=== PATIENT | female | born 1955 | race Caucasian/White ===

== ENCOUNTER 2020-06-12 09:26 | Day surgery (SDC) | payer OTHER ==
[2020-06-12] MEDS ORDERED: FENTANYL CITR 100 MCG/2 ML ONE (09:56)
[2020-06-12] MEDS ORDERED: LIDOCAINE 1% MPF 5 ML VIAL ONE (09:56)
[2020-06-12] MEDS ORDERED: propofoL 200 MG/20 ML VIAL IV ONE (09:56)
[2020-06-12] MEDS ORDERED: NA CHLORIDE 0.9% 1,000 ML ONE ×2 (10:04→10:29)
[2020-06-12] MEDS ORDERED: LIDOCAINE 1% W/EPI 1:100,000 MDV 50 ML VIAL ONE (10:29)
[2020-06-12] MEDS ORDERED: SCOPOLAMINE HYDROBROMIDE PATCH TD ONE (10:31)
[2020-06-12] MEDS ORDERED: ONDANSETRON 4 MG/2 ML VIAL ONE (10:41)
[2020-06-12] MEDS ORDERED: KETOROLAC 30 MG/ML INJ ONE (10:46)
[2020-06-12] MEDS ORDERED: dexAMETHasone 10 MG/ML VIAL ONE (10:46)
[2020-06-12] MEDS ORDERED: NS 0.9% VIAL 10 ML ONE (10:55)
[2020-06-12] MEDS ORDERED: EPHEDRINE SULF 50 MG/ML VIAL ONE (10:55)
[2020-06-12 11:37] VITALS: O2SAT 96
--- NOTE | 2020-06-12 12:12 | OP ---
Date of Procedure: 06/12/2020 Surgeon: Nila Tomas MD Preoperative Diagnoses: Postmenopausal bleeding, endometrial thickening. Postoperative Diagnoses: Postmenopausal bleeding, endometrial thickening, and endometrial polyps. Procedure Performed: Hysteroscopy, polypectomy, and D and C with MyoSure Lite. Anesthesia: General with LMA. Specimens: Polyps and endometrial curettings. Complications: No complications. Drains: No drains. Condition: Stable. Findings: Uterus with thickened posterior wall endometrium with irregularities and polypoid structur es in the left cornual end. All these were sampled adequately. Cervix had stenosis and the uterine cavity slightly deviated to the left and anteflexed. Indications: The patient is a 65-year-old female presented with postmenopausal bleeding, 1 episode, small amount. Transvaginal ultrasound showed thickened, heterogeneous endometrium. She was counsele d on the need for endometrial sampling to rule out atypia or malignancy. Description Of Procedure: She was consented and brought to the hospital today. At preop, her daught er was present and she asked appropriate questions regarding understanding of her procedure, the christi cation and management of her condition including postop instructions. All these were discussed and a fter questions were answered to patient and her daughter's satisfaction, she was taken back to the OR . So after taking the patient back, she was placed in a supine fashion on the operating table. Gene ral anesthesia was given, placed in a dorsal lithotomy position. Vulva, vagina, perineum prepped and draped in a sterile fashion. Speculum placed to expose the cervix. Anterior lip grasped with a sin gle-tooth tenaculum. The cervical canal was visualized and slimline diagnostic hysteroscope was used after another scope with a blunt tip was unable to pass through the cervical canal. The scope helpe d me get into the cervical canal through the internal os into the uterine cavity under direct visuali zation. Both tubal ostia were well visualized. The fundus was well visualized. The findings were a s dictated above, thickened polypoid structures at the left cornual end and posterior thickened irreg ular endometrium. The scope was removed and the MyoSure scope was taken. The cervical canal was dil ated to 16-Lao. Then, using the MyoSure Lite after priming the entire circuit, the scope with the device was introduced into the uterine cavity. Then, polypectomy was performed with the MyoSure dev ice as well as the entire endometrial curettings were performed. On the anterior wall of the uterus, there appeared to be irregular thickened tissue. This was also sampled adequately. The scope was p ulled out carefully, not a very high pressure was maintained during the hysteroscopy. The patient to lerated the procedure well. EBL was minimal. The single-tooth tenaculum was removed. All instrumen ts were removed. Instrument, needle, and sponge counts were correct. The patient tolerated the proc edure well. She was recovered from anesthesia in the OR and taken to PACU in stable condition. She has a 1-week followup appointment with me. We will discuss the pathology and then make management pl ans. SARATH/URSULA Voice ID: [id number] Report ID: [id number]
[2020-06-12 12:40] VITALS: BP 128/68; TEMP 98
== END 2020-06-12 12:40 | disposition home or self-care (01) ==
LOC: OR 09:26
PROVIDERS: ATTEND Obstetrics & Gynecology
PROC: 0UDB8ZX Extraction of Endometrium, Via Natural or Artificial Opening Endoscopic, Diagnostic (ICD-10-PCS; 2020-06-12)
PROC: 0UB98ZX Excision of Uterus, Via Natural or Artificial Opening Endoscopic, Diagnostic (ICD-10-PCS; principal; 2020-06-12 10:30)
DX: N85.00 Endometrial hyperplasia, unspecified (principal); N84.0 Polyp of corpus uteri; N95.0 Postmenopausal bleeding; Z79.890 Hormone replacement therapy; E11.40 Type 2 diabetes mellitus with diabetic neuropathy, unspecified; I10 Essential (primary) hypertension; R39.15 Urgency of urination; Z79.84 Long term (current) use of oral hypoglycemic drugs; E05.90 Thyrotoxicosis, unspecified without thyrotoxic crisis or storm; Z20.828 Contact with and (suspected) exposure to other viral communicable diseases; K21.9 Gastro-esophageal reflux disease without esophagitis
CPT/HCPCS: 82947 ×2; 88305; 58558; U0002; J2704; J3010; J1100; J7030 ×2; J2405

== ENCOUNTER 2020-07-17 11:05 | Day surgery (SDC) | payer OTHER ==
[2020-07-11 10:27] LABS: Urine Appearance CLEAR; Urine Bilirubin NEGATIVE (NEG); Urine Blood NEGATIVE (NEG); Urine Color YELLOW; Urine Glucose NEGATIVE (NEG); Urine Protein NEGATIVE (NEG); Urine Urobilinogen 0.2 mg/dL (0.2-1.0); Urine pH 5.5 (5.0-7.0)
[2020-07-11 10:29] LABS: Absolute Lymphocytes (CBC) 1.5 K/uL (0.7-4.9); Hematocrit 39.6 % (36.0-45.0); MPV 8.7 fL (7.6-11.3); RBC Red Blood Cell Count 4.28 M/uL (3.86-4.86)
[2020-07-11 10:41] LABS: Urine Microscopic Reflex NO UMIC
[~2020-07-17 11:05] MED LIST: FENTANYL CITR 250 MCG/5 ML ONE; KETAMINE HCL 500 MG/5 ML VIAL ONE; LIDOCAINE 1% MPF 5 ML VIAL ONE; MIDAZOLAM HCL 2 MG/2 ML INJ ONE; ONDANSETRON 4 MG/2 ML VIAL ONE; ROCURONIUM 50 MG/5 ML VIAL IV ONE; dexAMETHasone 10 MG/ML VIAL ONE; propofoL 200 MG/20 ML VIAL IV ONE
[2020-07-17] MEDS ORDERED: CEFAZOLIN/SWI 2gm 2 GM/20 ML SYR ONE (11:30)
[2020-07-17] MEDS ORDERED: SCOPOLAMINE HYDROBROMIDE PATCH TD ONE (11:30)
[2020-07-17] MEDS ORDERED: NA CHLORIDE 0.9% 1,000 ML ONE (11:30)
--- OUTSIDE RECORDS SUMMARY | 2020-07-17 11:30 | XMS REPORT | Clinical Summary ---
:1955 Author Organization [facility] Address [address] [place] [address] Care Team Providers Name Role Phone Janny Crespo DO Primary Care Provider Allergies No Known Active Allergies Medications Medication Sig Dispensed Refills Start End Status Date Date hydroCHLOROthiazide 1 capsule in 0 Active (MICROZIDE) 12.5 mg the morning capsule metoprolol tartrate Take 1 tablet 90 tablet 3 01/10/20 Active (LOPRESSOR) 50 mg (50 mg total) 021 tablet by mouth 2 (two) times a day. omeprazole (PriLOSEC) Take 40 mg by 0 Active 40 MG capsule mouth daily. levothyroxine Take 50 mcg 0 Acti ve (SYNTHROID) 50 mcg by mouth tablet daily. oxybutynin (DITROPAN) 5 Take 5 mg by 0 Active MG tablet mouth 3 (three) times a day. metFORMIN (GLUCOPHAGE) Take 1,000 mg 0 Active 1,000 mg tablet by mouth 2 (two) times a day with meals. levothyroxine Take 1 tablet 0 09/02/19 Di scontinued (SYNTHROID, LEVOXYL) 25 by mouth 020 (Formulary mcg tablet daily. change) keTOROlac (ACULAR LS) Administer 1 5 mL 0 12/13/01/09 Discontinued 0.4 % ophthalmic drop into the (Formulary solution left eye 2 change) (two) times a day. prednisoLONE acetate Administer 1 5 mL 0 12/13/ Discontinued (PRED FORTE) 1 % drop to the ( Formulary ophthalmic suspension right eye 2 change) (two) times a day. metoprolol tartrate 1 tablet with 0 Discontinued (LOPRESSOR) 25 mg food 020 (F ormulary tablet change) ezetimibe (ZETIA) 10 mg 1 tablet 0 Discontinued tablet 020 (Therapy completed) losartan (COZAAR) 50 MG Take 50 mg by 0 Discontinued tablet mouth daily. 020 (Formul josee change) metoprolol succinate XL Take 25 mg by 0 Discontinued (TOPROL-XL) 25 mg 24 hr mouth. 020 (Duplicate tablet order) pantoprazole (Protonix) Take 1 tablet 30 tablet 2 03/19/20 40 MG EC tablet (40 mg total) 20 020 by mouth daily for 30 days. benzonatate (TESSALON) Take 1 90 capsule 0 03/19/20 200 MG capsule capsule (200 20 020 mg total) by mouth 3 (three) times a day as needed for cough for up to 30 days. sucralfate (Carafate) Take 10 mL (1 1200 mL 0 03/19/2003/23 100 mg/mL suspension g total) by 20 020 mouth 4 (four) times a day for 30 days. Active Problems Problem Noted Date Chronic cough 03/19/2020 Gastroesophageal reflux disease without esophagitis Pure hypercholesterolemia 01/10/2020 SOB (shortness of breath) 01/10/2020 Essential hypertension 01/10/2020 Pseudophakia 10/12/2018 Overview: OS 10/12/18 PCB00 20.5 OD 11/30/18 PCB00 21.0 Last Assessment & Plan: OS 10/12/18 PCB00 20.5 OD 11/30/18 PCB00 21.0 Post-op. Doing well.. Take drops as per handout/instruction sh eet. Defers 1 week appt, will call if any pro blems. Return for followup in 1 month, sooner i f any problems, including vision loss, pain, redness, light sensitivity. S/Sx of infection/inflammation d/w pt. Start ATs OS -- c/o FBS. Info given. Optic cupping of both eyes 10/04/2018 Last Assessment & Plan: OCT Normal, no glaucoma. Encounters Date Type Specialty Care Team Description 03/19/2020 Hospital Encounter Radiology Preston Alfaro, Chr onic cough 03/19/2020 Clinical Support Pulmonology Preston Alfaro, Chron ic cough Manolo Lewis 03/19/2020 Office Visit Pulmonology Preston Alfaro, Chronic c ough (Primary Dx); MD Hansa esquivel reflux disease without esophagitis 03/19/2020 Travel 03/16/2020 Travel 02/29/2020 Travel 02/21/2020 Travel 01/10/2020 Office Visit Cardiology Andrew Alfaro, SOB (shortn ess of breath) (Primary Dx); Pure hyperchole sterolemia; Essential hyper tension 01/10/2020 Travel 01/04/2020 Travel after 07/17/2019 Surgical History Surgery Date Site/Laterality Comments CHOLECYSTECTOMY 06/22/1991 - 06/21/1992 SECTION x2 CATARACT EXTRACTION W/ 10/12/2018 Left INTRAOCULAR LENS IMPLANT PHACOEMULSIFICATION, 10/12/2018 Eye/Left Procedure: CATARACT, WITH IOL PHACOEMULSIFI CATION WITH IMPLANTATION INTRAOCULAR LENS IMPLANT, LEFT EYE; Surge on: Yunier Jenkins MD; L ocation: [facility] OR; Serv ice: Ophthalmology; Laterality: Left; Medical devices from this surgery are in t he Implants section. PHACOEMULSIFICATION, 11/30/2018 Eye/Right Procedure: CATARACT REMOVAL CATARACT, WITH IOL BY PHACOEMULS IFICATION WITH IMPLANTATION INTRAOCULAR LENS IMPLANT RIGHT EYE; Surg car: Yunier Jenkins MD; L ocation: [facility] OR; Serv ice: Ophthalmology; Laterality: Right; Medical devices from this surgery are in t he Implants section. Medical History Medical History Date Comments Disease of thyroid gland 2017 controlled with medication Social History Tobacco Use Types Packs/Day Years Used Date Never Smoker Smokeless Tobacco: Never Used Alcohol Use Drinks/Week oz/Week Comments Yes social only Sex Assigned at Date Recorded Not on file Last Filed Vital Signs Vital Sign Reading Time Taken Comments Blood Pressure 140/60 03/19/2020 1:51 PM CDT Pulse 62 03/19/2020 1:51 PM CDT Temperature 37 C (98.6 F) 03/19/2020 1:51 PM CDT Respiratory Rate 14 03/19/2020 1:51 PM CDT Oxygen Saturation 98% 03/19/2020 1:51 PM CDT Inhaled Oxygen Concentration - - Weight 66.1 kg (145 lb 12.8 oz) 03/19/2020 1:51 PM CDT Height 151.1 cm (4' 11.5") 03/19/2020 1:51 PM CDT Body Mass Index 28.96 03/19/2020 1:51 PM CDT Plan of Treatment Health Maintenance Due Date Last Done Comments DIABETIC FOOT EXAM 1963 URINE MICROALBUMIN 1963 COVID-19 VACCINE (1 of 2) 1969 BREAST CANCER SCREENING 2003 COLONOSCOPY SCREENING 2003 SHINGLES VACCINES (#1) 2003 65+ PNEUMOCOCCAL VACCINE (1 of 1 - 2018 PPSV23) INFLUENZA VACCINE 01/21/2020 DIABETES: RETINAL EYE EXAM 10/04/2020 10/04/2018, 9, 09/09/2018, Additional history exists Implants Implanted Type Area Computer Hardware Engineer Device Shelf Model / Identifier Expiration Serial / Lot Date Lens Iol Tecnis Monofocal Preloaded 1 Pi loree Pcb 20.5d - [id number] - [id number] Intraocular Left: [employer] 04/08/2021 [id number] / Implanted: Qty: 1 on 10/12/2018 by Yunier Jenkins MD at [facility] Lens Implant [employer] [id number] / [id number] Lens Iol Tecnis Monofocal Preloaded 1 Pi loree Pcb 21.0d - [id number] - [id number] Intraocular Right: [employer] 09/23/2021 [id number] / Implanted: Qty: 1 on 11/30/2018 by Yunier Jenkins MD at [facility] Lens Implant [employer] [id number] / [id number] Procedures Procedure Name Priority Date/Time Associated Diagnosis Comme nts XR CHEST 2 VW Routine 03/19/2020 4:04 Chronic cough Results f or this PM CDT procedure are i n the results section. CV STRESS TEST Routine 02/21/2020 12:08 Pure hyperchole sterolemia Results for this PM CDT SOB (shortness o f breath) procedure are in Essential hypertension the r esults section. NM MYOCARDIAL Routine 02/21/2020 10:37 Pure hyperchole sterolemia Results for this PERFUSION AM CDT SOB (shortness o f breath) procedure are in Essential hypertension the r esults section. ECG 12-LEAD Routine 01/10/2020 12:03 Pure hypercholesterolemi a Results for this PM CDT procedure are i n the results section. after 07/17/2019 Results XR Chest 2 Vw (03/19/2020 4:04 PM CDT) Specimen Narrative Performed At EXAMINATION: XR CHEST 2 VW [facility] CLINICAL HISTORY: R05 Cough, Chronic c ough COMPARISON: None IMPRESSION: 1. The heart and pulmonary vasculature a re within normal limits. 2. No infiltrate or effusion is demonstr ated. 3. There is no acute osseous pathology. CONCLUSION: NO RADIOGRAPHIC EVIDENCE OF ACUTE CARDIOPU LMONARY ABNORMALITY. [facility]-[id number] Procedure Note Hm Interface, Radiology Results Incoming - 03/19/2020 4:10 PM CDT EXAMINATION: XR CHEST 2 VW CLINICAL HISTORY: R05 Cough, Chronic co ugh COMPARISON: None IMPRESSION: 1. The heart and pulmonary vasculature a re within normal limits. 2. No infiltrate or effusion is demonstr ated. 3. There is no acute osseous pathology. CONCLUSION: NO RADIOGRAPHIC EVIDENCE OF ACUTE CARDIOPULMONARY ABNORMALITY. [facility]-[id number] Performing Organization Address City/State/ZIP Code Phon e Number [facility] [address] [place] [address] Cv stress test (02/21/2020 12:08 PM CDT) Resting HR 59 [facility] Resting BP 150&90 [facility] Peak MET Achieved 1.0 [facility] Protocol Name [facility] Time in Exercise 00:01:00 H MUSE Phase Max Systolic BP 150 [facility] Max Diastolic BP 90 [facility] Max Heart Rate 93 [facility] Max Predicted Heart 153 H [facility] Rate Target HR Formula (220 - Age)*100% H MUSE Test Indication HYPERCHOLESTEROLEMIA, [facility] HTN, SOB Arrhy During Ex [facility] ECG Interp Before EX [facility] ECG Interp During Ex H MUSE Ex Summary Comment [facility] M[facility] Chest Pain Statement none [facility] M[facility] Overall HR Response H MUSE to Exercise Overall BP Response [facility] M[facility] To Exercise Reason for As per [facility] Termination protocol Stress Test Waveform interpreted in [facility] Impression report associated with image study. No interpretation is provided as part of this Stress ECG report.--Electronically Signed By Gavino FERGUSONTruong ([id number]), legal editor Lauren Ratliff ([id number]) on 02/29/2020 2:28:16 PM Specimen Narrative Performed At This result has an attachment that is no t available. Performing Organization Address City/State/ZIP Code Phon e Number [facility] MUSE [address] [place] [address] Nm myocardial perfusion (02/21/2020 10:37 AM CDT) Specimen Narrative Performed At [facility] Card[facility] [address] [place] [address] Myocardial Pe rfusion Imaging Report Stress ECG tracings are availab le in MUSE, [employer] and [employer] Web All ECG interpretations a re included in this report Pat.Name: HANNA PEREZ Pat.ID: [id number] .Date: 02/21/2020 Refer.MD: ANDREW ALFARO MD Exam Time: 10:37:00 AM Study Type:Myocardial Perfusion Imaging Height: 59in Weight: 148lb BSA: 1.62 m2 Ag e: 1955,65Y Sex: FEMALE Nuclear Tech:CONNER Delgadillo Nuclear Event ID:[id number] Order ID: [id number] Reason for Study:Shortness of breath, Hy pertension, Hypercholesterolemia Procedures: Single Day Rest / Stress Race: Clinical Symptoms:Regadenoson SUMMARY: BASELINE ECG Sinus bradycardia STRESS TEST RESULTS Maximal Predicted HR 153 beats/minute 85% Maximal Predicted HR 130 beats/minute Stress Test Duration 1 minutes 00 seco nds Resting Heart Rate 57 beats/minute Max imal Heart Rate 93 beats/minute Resting Blood Pressure 150/90 mmHg Max imal Blood Pressure 150/90 mmHg % Maximal Heart Rate Achieved 61% Symptoms During Test None Reason for Stopping Test As per regade noson protocol Maximal ST-segment shift None Stress-Induced Arrhythmias None Ischemic electrocardiographic changes (S T-segment depression) did not occur at peak regadenoson stress. STRESS TEST INTERPRETATION Normal tanya l regadenoson stress test. SCINTIGRAPHIC RESULTS Perfusion Defect Size (% LV) 0 % Total 0 % Ischemia 0 % Scar Left Ventricular Perfusion Results There is normal tracer distribution duri ng stress and rest. Gated SPECT Results The post-stress left ventricular ejectio n fraction is 63 % with normal regional wall motion and left ventricula r thickening. Left ventricular end-diastolic volume is 54 m l; end-systolic volume is 20 ml. The left ventricle is of normal size at stress and at rest. The right ventricle is of normal size with n ormal wall motion. Conclusion Normal regadenoson Tc-99m sestamibi myoc ardial perfusion study. The left ventricular ejection fraction is no rmal. Comments Patients with a normal stress myocardial perfusion study have a low (< 1%) annual risk of cardiac or nonf atal myocardial infarction. Study Quality/Artifacts The study quality is good. Comparison to Previous Study None available. FINDINGS: Signed 02/23/2020 04:05 PM Truong Mancia MD Procedure Note Interface, Radiology Results In - 2019 4:06 PM [facility]T Nuclear Cardiology and Cardiac CT [address] [place] [address] Myocardial Perfusion I maging Report Stress ECG tracings are available in [employer], [employer] and [employer] All ECG interpretations are in cluded in this report Pat.Name: HANNA PEREZ Pat.I D: [id number] St.Date: 02/21/2020 Refer .MD: ANDREW ALFARO MD Exam Time: 10:37:00 AM Study Type:Myocardial Perfusion Imaging Height: 59in Weigh t: 148lb BSA: 1.62 m2 Age: 8 1955,65Y Sex: FEMALE Nucle ar Tech:CONNER Delgadillo Nuclear Event ID:[id number] Order ID: [id number] Reason for Study:Shortness of breath, Hy pertension, Hypercholesterolemia Procedures: Single Day Rest / Stress Race: Clinical Symptoms:Regadenoson SUMMARY: BASELINE ECG Sinus bradycardia STRESS TEST RESULTS Maximal Predicted HR 153 beats/minute 8 5% Maximal Predicted HR 130 beats/minute Stress Test Duration 1 minutes 00 secon ds Resting Heart Rate 57 beats/minute Maxi mal Heart Rate 93 beats/minute Resting Blood Pressure 150/90 mmHg Maxi mal Blood Pressure 150/90 mmHg % Maximal Heart Rate Achieved 61% Symptoms During Test None Reason for Stopping Test As per regaden oson protocol Maximal ST-segment shift None Stress-Induced Arrhythmias None Ischemic electrocardiographic changes (S T-segment depression) did not occur at peak regadenoson stress. STRESS TEST INTERPRETATION Normal tanya l regadenoson stress test. SCINTIGRAPHIC RESULTS Perfusion Defect Size (% LV) 0 % Total 0 % Ischemia 0 % Scar Left Ventricular Perfusion Results There is normal tracer distribution duri ng stress and rest. Gated SPECT Results The post-stress left ventricular ejectio n fraction is 63 % with normal regional wall motion and left ventricula r thickening. Left ventricular end-diastolic volume is 54 m l; end-systolic volume is 20 ml. The left ventricle is of normal size at stress and at rest. The right ventricle is of normal size with n ormal wall motion. Conclusion Normal regadenoson Tc-99m sestamibi myoc ardial perfusion study. The left ventricular ejection fraction is no rmal. Comments Patients with a normal stress myocardial perfusion study have a low (< 1%) annual risk of cardiac or nonf atal myocardial infarction. Study Quality/Artifacts The study quality is good. Comparison to Previous Study None available. FINDINGS: Signed 02/23/2020 04:05 PM Truong Mancia MD Performing Organization Address City/State/ZIP Code Phon e Number [facility] [address] [place] [address] ECG 12 lead (01/10/2020 12:03 PM CDT) Pathologist Sig nature Ventricular rate 69 [facility] Atrial rate 69 [facility] NJ interval 150 [facility] QRSD interval 84 [facility] QT interval 408 [facility] QTC interval 437 [facility] P axis 1 78 [facility] QRS axis 1 22 [facility] T wave axis -2 [facility] EKG impression Normal sinus [facility] rhythm-Normal ECG-No previous ECGs available-Electronicall y Signed By Koby FERGUSON, Mark ([id number]) on 01/10/2020 9:09:28 PM Specimen Narrative Performed At This result has an attachment that is no t available. Performing Organization Address [facility] Code Phon e Number [facility] MUSE [address] [place] [address] after 07/17/2019 Insurance Payer Benefit Plan / Subscriber ID Effective Phone Address T ype Group Dates MEDICARE MEDICARE PART A [id number] 2018-Pres [place], [place] Medicare AND B ent COMMERCIAL MISC MISC COMMERCIAL [id number] 2018-Pre Commercial sent Advance Directives For more information, please contact: [phone] Type Date Recorded Patient Button Sewer Hand Explanati on Advance Directives, Living Will 11/30/2018 6:45 AM and Medical Power of Pediatric Speech Therapist
--- OUTSIDE RECORDS SUMMARY | 2020-07-17 11:31 | XMS REPORT ---
:1955 [address] [facility] Address [address] [place], [address] [place] [address] Care Team Providers Name Role Phone Crespo Unavailable [phone] PROBLEMS Type Condition ICD9-CM [id number] Onset Condition SNOMED Code Notes Code Code Dates Status Problem Depression with F41.8 Active 916057635 anxiety Problem Urinary incontinence R32 Active 418858256 Problem Acquired E03.9 Active 923747438 hypothyroidism Problem Family history of Z83.3 Active 768252202 diabetes mellitus Problem Abnormal blood R79.9 Active 824765953 chemistry Problem Hypertriglyceridemia E78.1 Active 900125674 Problem GERD (gastroesophageal K21.9 Active 113562957 reflux disease) Problem Osteoporosis M81.0 Active 55414793 Problem Slow transit K59.01 Active 75174833 constipation Problem Seasonal allergic J30.2 Active 801570955 rhinitis, unspecified trigger Problem Essential hypertension I10 Active 40255284 Problem Mild persistent J45.30 Active 955696556 asthma, unspecified whether complicated Problem Gastroesophageal K21.9 Active 471606579 reflux disease without esophagitis Problem Elevated blood R03.0 Active 165360190 pressure reading in office without diagnosis of hypertension Problem Abdominal pain, left R10.12 Active 985207343 upper quadrant Problem Hyperlipidemia E78.5 Active 51499145 Problem Candidal intertrigo B37.2 Active 960187146 Problem Gastroesophageal K21.9 Active 181403651 reflux disease, esophagitis presence not specified Problem Controlled type 2 E11.9 Active 363498373 diabetes mellitus without complication, without long-term current use of insulin Problem Atrophic vaginitis N95.2 Active 53212619 Problem Allergic rhinitis due J30.81 Active 2081178013 64052 to animal hair and dander ALLERGIES No Known Allergies ENCOUNTERS from 1955 to 2020-07-03 Encounter Location Date Provider Diagnosis [facility] [address] Akash ROSE Jun, Janny Huitrong Acq uired hypothyroidism Family [facility] [address] [place], E03.9 ; [place] [address] 2 diabetes randa litus without complic ation, without long-te rm current use of insulin E11.9 and Hyper lipidemia E78.5 IMMUNIZATIONS No Information SOCIAL HISTORY Tobacco Use: Social History Observation Description Date Details (start date - stop date) Never Smoker Sex Assigned At : Social History Observation Description Sex Assigned At Unknown PHQ9 Question Answer Notes Little interest or pleasure in doing things Several days Feeling down, depressed, or hopeless More than half the days Trouble falling or staying asleep or sleeping too much Sever al days Feeling tired or having little energy More than half the day s Poor appetite or overeating Several days Feeling bad about yourself, or that you are a failure, Sever al days or have let yourself or your family down Trouble concentrating on things, such as reading the Not at all newspaper or watching television Moving or speaking so slowly that other people could Not at all have noticed; or the opposite, being so fidgety or restless that you have been moving around a lot more than usual Total Score 8 Interpretation Mild Depression Thoughts that you would be better off or of Not at all hurting yourself in some way Tobacco Use/Smoking Question Answer Notes Are you a never smoker REASON FOR REFERRAL No Information VITAL SIGNS Height 59.50 in Jun, Weight 150.2 lbs Jun, Temperature 96.6 degrees Fahrenheit Jun, BMI 29.83 kg/m2 Jun, Oximetry 98 % Jun, Respiratory Rate 16 /min Jun, Blood pressure systolic 121 mm Hg Jun, Blood pressure diastolic 68 mm Hg Jun, MEDICATIONS Medication SIG (Take, Route, Notes Start Date End Date Status Frequency, Duration) Triamcinolone Acetonide 0.1 % 1 application to 30 Mar, 202 0 Active affected area Externally Twice a day for 14 days Levothyroxine Sodium 25 MCG take 1 tablet in the Active am once daily orally Orally Once a day for 90 days Januvia 50 MG as directed Orally Mar, A ctive Once a day for 30 days Glimepiride 4 MG 1 tablet Orally twice Active a day with food for 90 days Hydrochlorothiazide 12.5 MG 1 capsule in the Active morning Orally Once a day for 30 day(s) Losartan Potassium 25 MG 1 tablet Orally Once Active a day for 30 day(s) Ezetimibe 10 MG 1 tablet Orally Once Active a day for 30 day(s) Metoprolol Tartrate 25 MG 1 tablet with food Active Orally Twice a day for 30 days Montelukast Sodium 10 MG 1 tablet Orally Once Active a day for 90 days ProAir RespiClick 108 (90 2 puffs Inhalation Nov, Active Base) MCG/ACT every 6 hours prn sob/ or coughing excessively for 30 days Albuterol Sulfate HFA 108 (90 2 puffs Inhalation Nov, Active Base) MCG/ACT every 6 hours prn sob for 30 days MetFORMIN HCl ER 500 MG 1 tablet with meal May, Active Orally Once a day for 90 days PROCEDURES No Information RESULTS No Results REASON FOR VISIT 1 month follow up , Medication check , hair thinning biotin use and thyroid, htn, Dm2 MEDICAL (GENERAL) HISTORY Type Description Date Medical History Depression with anxiety Medical History GERD (gastroesophageal reflux disease) Medical History Elevated blood pressure reading in offic e without diagnosis of hypertension Medical History Abnormal blood chemistry Medical History Family history of diabetes mellitus Medical History Hyperlipidemia Medical History Hypertriglyceridemia Medical History Osteoporosis Medical History Urinary incontinence Medical History Candidal intertrigo Surgical History 1988 Surgical History gallbladder 1992 Goals Section No Information Health Concerns No Information MEDICAL EQUIPMENT No Information MENTAL STATUS No Information FUNCTIONAL STATUS No Information ASSESSMENTS Encounter Date Diagnosis Assessment Treatment Notes Treatment Notes Clinical Notes Jun, Acquired -Take thyroid advised to hol d hypothyroidism medication on biotin conta ining (ICD-10 - E03.9) empty stomach supplement approx first thing in AM 1-2 weeks prior with water. Avoid to doing t hyroid calcium, iron, and labs due to false milk with elevation of BP . medication. -Wait 60mintues before breakfast as thyroid medication binds with many foods/medications. - Recognize symtoms of hyperthyroidism/th yroid over replacement and call clinic if any symptoms develop or problems arise. Will monitor TFTs and adjust levothyroxine if necessary. labs ordered Jun, Controlled type 2 low carb 1800 ADA incre ase diabetes mellitus diet. Avoid sodas, glim eperide 2 mg without juices and to 2 tabs twice a complication, remember portion day with l argest without long-term control. Take your meal s current use of medication as keep log of FBG insulin (ICD-10 - prescribed. and post p randial E11.9) Monitor your blood bg to rev iew sugar at home as directed and keep a log to bring back with you to your next visit for review. Schedule your annual diabetic eye exam with your eye doctor to screen for diabetic retinopathy. Check your feet daily to make sure you have no open wounds. -- not able to tolerate and nonadherent to metformin daily due to diarrhea with medication. Jun, Hyperlipidemia Please maintain (ICD-10 - E78.5) low fat diet, decrease fast food and fried foods. Increase fruit and vegetable intake. exercise as tolerated 30minutes per day at least 3 days a week. May take fish oil 1000mg twice daily to help increase good cholesterol (HDL) and take metamucil / eat oatmeal in AM to help lower bad cholesterol. Jun, Other time was spent counseling and coordinating ca re including but n ot limited to discussion of test results, diagnostic or treatment recommendations , prognosis, risk s and benefits of management options, instructions, education, compliance and or risk reduction. PLAN OF TREATMENT Medication Medication Name Sig Start Date Stop Date Glimepiride 4 MG 1 tablet Orally twice a day with food for 90 days Levothyroxine Sodium 25 MCG take 1 tablet in the am once daily orally Orally Once a day for 90 days Treatment Notes Assessment Notes Clinical Notes Acquired hypothyroidism -Take thyroid medication on advised to hold biotin empty stomach first thing in containing supplement AM with water. Avoid calcium, approx 1-2 weeks prior to iron, and milk with doing thyroid labs d ue to medication. -Wait 60mintues false elevat ion of BP. before breakfast as thyroid medication binds with many foods/medications. - Recognize symtoms of hyperthyroidism/thyroid over replacement and call clinic if any symptoms develop or problems arise. Will monitor TFTs and adjust levothyroxine if necessary.labs ordered Controlled type 2 diabetes low carb 1800 ADA diet. Avoid inc rease glimeperide 2 mg mellitus without complication, sodas, juices and remember to 2 tabs twice a day with without long-term current use portion control. Take your lar gest mealskeep log of of insulin medication as prescribed. FBG and post p randial bg Monitor your blood sugar at to review home as directed and keep a log to bring back with you to your next visit for review. Schedule your annual diabetic eye exam with your eye doctor to screen for diabetic retinopathy. Check your feet daily to make sure you have no open wounds.-- not able to tolerate and nonadherent to metformin daily due to diarrhea with medication. Hyperlipidemia Please maintain low fat diet, decrease fast food and fried foods. Increase fruit and vegetable intake. exercise as tolerated 30minutes per day at least 3 days a week. May take fish oil 1000mg twice daily to help increase good cholesterol (HDL) and take metamucil / eat oatmeal in AM to help lower bad cholesterol. Treatment Notes Test Name Order Date Lipid Panel w/ Chol/HDL Ratio 2020-07-03 Microalbumin/Creat Ratio, Random Ur 2020-07-03 Hemoglobin A1c 2020-07-03 Comp. Metabolic Panel (14) (CMP) 2020-07-03 TSH reflex to T4F 2020-07-03 Next Appt Details 2M f/u THV okay labs prior Reason: Provider Name:Janny Crespo, 2020-07-06 09:0 0:00 AM, [address], [address], [place], [address], Provider Name:Janny Crespo 2020-09-06 11:4 0:00 AM, [address], [address], [place], [address], Insurance Providers Payer Name Payer Address Payer Insured Patient Coverage Cover age Phone Name Relationship to Start Date End Date Insured MEDICARE Attn Part B [id number] Chris, self 2018 [employer] [address] [place] [address] [facility] [address] [place] [address] [phone] Chris, self 2018 [facility] [address] [address]
--- OUTSIDE RECORDS SUMMARY | 2020-07-17 11:31 | XMS REPORT ---
:1955 Author Organization [facility] Address [address], [address] [place] [address] Care Team Providers Name Role Phone Crespo Unavailable [phone] PROBLEMS Type Condition ICD9-CM [id number] Onset Condition SNOMED Code Notes Code Code Dates Status Problem Depression with F41.8 Active 493746562 anxiety Problem Urinary incontinence R32 Active 555772711 Problem Acquired E03.9 Active 269170941 hypothyroidism Problem Family history of Z83.3 Active 605050684 diabetes mellitus Problem Abnormal blood R79.9 Active 134782814 chemistry Problem Hypertriglyceridemia E78.1 Active 616163490 Problem GERD (gastroesophageal K21.9 Active 384911899 reflux disease) Problem Osteoporosis M81.0 Active 18058996 Problem Slow transit K59.01 Active 04525972 constipation Problem Seasonal allergic J30.2 Active 769516164 rhinitis, unspecified trigger Problem Essential hypertension I10 Active 80950823 Problem Mild persistent J45.30 Active 503827053 asthma, unspecified whether complicated Problem Gastroesophageal K21.9 Active 187756539 reflux disease without esophagitis Problem Elevated blood R03.0 Active 850713582 pressure reading in office without diagnosis of hypertension Problem Abdominal pain, left R10.12 Active 971536410 upper quadrant Problem Hyperlipidemia E78.5 Active 68472011 Problem Candidal intertrigo B37.2 Active 542253269 Problem Gastroesophageal K21.9 Active 349661240 reflux disease, esophagitis presence not specified Problem Controlled type 2 E11.9 Active 674231218 diabetes mellitus without complication, without long-term current use of insulin Problem Atrophic vaginitis N95.2 Active 71057332 Problem Allergic rhinitis due J30.81 Active 6021888027 83949 to animal hair and dander ALLERGIES No Known Allergies ENCOUNTERS from 1955 to 2020-05-30 Encounter Location Date Provider Diagnosis [facility] [address] May, Janny Crespo Ady ponce type 2 Family [facility] [address], [place] [address] without compli cation, without long-te rm current use of insulin E11.9 and Acqui red hypothyroidism E03.9 IMMUNIZATIONS No Information SOCIAL HISTORY Tobacco Use: [...] REASON FOR REFERRAL No Information VITAL SIGNS No information MEDICATIONS Medication SIG (Take, Route, Notes Start Date End Date Status Frequency, Duration) ProAir RespiClick 108 (90 2 puffs Inhalation Nov, Active Base) MCG/ACT every 6 hours prn sob/ or coughing excessively for 30 days Hydrochlorothiazide 12.5 MG 1 capsule in the Active morning Orally Once a day for 30 day(s) Ezetimibe 10 MG 1 tablet Orally Acti ve Once a day for 30 day(s) Losartan Potassium 25 MG 1 tablet Orally Active Once a day for 30 day(s) Glimepiride 2 MG 1 tablet Orally May, A ctive twice a day with food for 90 days Montelukast Sodium 10 MG 1 tablet Orally Active Once a day for 90 days Triamcinolone Acetonide 0.1 1 application to Aug, Active % affected area Externally Twice a day for 14 days Januvia 50 MG as directed Orally Mar, A ctive Once a day for 30 days Levothyroxine Sodium 25 MCG take 1 tablet in Active the am once daily orally Orally Once a day for 90 days Albuterol Sulfate HFA 108 2 puffs Inhalation Nov, Active (90 Base) MCG/ACT every 6 hours prn sob for 30 days Metoprolol Tartrate 25 MG 1 tablet with food Active Orally Twice a day for 30 days MetFORMIN HCl ER 500 MG 1 tablet with meal May, Active Orally Once a day for 90 days Incruse Ellipta 62.5 MCG/INH 1 puff Inhalation Dec, 0 May, Active Once a day for 90 days PROCEDURES No Information RESULTS No Results REASON FOR VISIT Medication check , hair thinning biotin use [...] Assessment Treatment Notes Treatment Notes Clinical Notes May, Controlled type 2 low carb 1800 ADA start glimeperide diabetes mellitus diet. Avoid sodas, 2 mg twice a day without juices and with largest complication, remember portion meals without long-term control. Take your keep log of FBG current use of medication as and post pra ndial insulin (ICD-10 - prescribed. bg to revi ew E11.9) Monitor your blood sugar at home as directed and keep a log to bring back with you to your next visit for review. Schedule your annual diabetic eye exam with your eye doctor to screen for diabetic retinopathy. Check your feet daily to make sure you have no open wounds. -- not able to tolerate and nonadherent to metformin daily due to diarrhea with medication. May, Acquired -Take thyroid advised to hol d [...] and adjust levothyroxine if necessary. labs ordered May, Other Total time spen t by provider during this telephone visit was approx 20 minutes. Also, time was spent counseling and coordinating ca re including but n ot limited to discussion of test results, diagnostic or treatment recommendations , prognosis, risk s and benefits of management options, instructions, education, compliance and or risk reduction. PLAN OF TREATMENT Medication Medication Name Sig Start Date Stop Date Levothyroxine Sodium 25 MCG take 1 tablet in the am once daily orally Orally Once a day for 90 days Glimepiride 2 MG 1 tablet Orally twice a day with May, food for 90 days Treatment Notes Assessment Notes Clinical Notes Controlled type 2 diabetes low carb 1800 ADA diet. Avoid sta rt glimeperide 2 mg mellitus without complication, sodas, juices and remember tw ice a day with largest without long-term current use portion control. [facility] FBG and of insulin medication as prescribed. post prandial bg to review Monitor your blood sugar at home as directed and keep a log to bring back with you to your next visit for review. Schedule your annual diabetic eye exam with your eye doctor to screen for diabetic retinopathy. Check your feet daily to make sure you have no open wounds.-- not able to tolerate and nonadherent to metformin daily due to diarrhea with medication. Acquired hypothyroidism -Take thyroid medication on advised [...] TFTs and adjust levothyroxine if necessary.labs ordered Next Appt Details 4 Weeks Reason: Provider Name:Janny Crespo, 2020-06-28 11:2 0:00 AM, [address], [address], [place], [address], Insurance Providers Payer Name Payer Address Payer Insured Patient Coverage Cover age Phone Name Relationship to Start Date End Date Insured [place] [address] [phone] Chris, self 2018 [facility] [address] [phone] MEDICARE Attn Part B [id number] Chris, self 2018 [employer] [address] [place] [address] [facility] [id number]
--- OUTSIDE RECORDS SUMMARY | 2020-07-17 11:31 | XMS REPORT | Continuity of Care Document ---
:1955 Author Organization [facility] t Address [address] [place] [address] Care Team Providers Name Role Phone Joselin Crespo DO Primary Care Physician Sugar Alfaro MD. Attending Clinician Leann Attending Clinician Unavailable DOMINIC Attending Clinician Unavailable True Hernandes MD Attending Clinician Radha FLORES Attending Clinician Abel Mariee MD Attending Clinician Only, Test Attending Clinician Unavailable Mary Alfaro Attending Clinician Unavailable True Hernandes MD Admitting Clinician Payers Payer Name Policy Type Policy Effective Date Expiration Date Sour ce Number MEDICAREMEDICARE PART [id number] 2018 Eduardo Mac AND 00:00:00 Hinduism [id number] 2017- ANGIE PearsonMedicare COMMERCIAL MISCMISC [id number] 2018 [place] [id number] 00:00:00 Met galindo /-Luis M rcial Problems Condition Condition Condition Status Onset Resolution Last Treating Co mments Source Name Details Category Date Date Treatment Clinician Date Chronic Chronic Disease Active [place] cough cough 03-19 Methodi 00:00: st Gastroesop Gastroesop Disease Active [place] hageal hageal 03-19 [facility] reflux reflux 00:00: st disease disease 00 without without esophagiti esophagiti s s Pure Pure Disease Active [place] hyperchole hyperchole 7-21 Me thodi sterolemia sterolemia 00:00: st SOB SOB Disease Active [place] (shortness (shortness 7-21 Me thodi of breath) of breath) 00:00: st 00 Essential Essential Disease Active Shanel ston hypertensi hypertensi 7-21 Me thodi on on 00:00: st Pseudophak Pseudophak Disease Active Overview : [place] ia ia 4- OS Methodi 00:00: 10/12/18 00 PCB00 20.5OD 11/30/18 PCB00 21.0Last Assessmen t & Plan: OS 10/12/18 PCB00 20.5OD 11/30/18 PCB00 21.0Post- op. Doing well..Brady e drops as per handout/i nstructio n sheet.Def ers 1 week appt, will call if any problems. Return for followup in 1 month, sooner if any problems, including vision loss, pain, redness, light sensitivi ty. S/Sx of infection /inflamma tion d/w pt.Start ATs OS -- c/o FBS. Info given. Optic Optic Disease Active Last [place] cupping of cupping of 4-15 Assessmen Methodi both eyes both eyes 00:00: t & Plan: s t 00 OCT Normal, no glaucoma. Allergies, Adverse Reactions, Alerts This patient has no known allergies or adverse reactions. Social History Social Habit Start Date Stop Date Quantity Comments Source Sex Assigned At [facility] ethodist Tobacco use and 2020-03-19 2020-03-19 Never used [facility] ethodist exposure 00:00:00 00:00:00 Alcohol intake 2020-03-19 2020-03-19 Current drinker [place] [facility]ism 00:00:00 00:00:00 of alcohol (finding) Alcohol Comment 2018-09-09 2018-09-09 social only [place] 00:00:00 00:00:00 Smoking Status Start Date Stop Date Source Never smoker Leal Mimais t Medications Ordered Filled Start Stop Current Ordering Indication Dosage Frequency Signature Comments Components Source Medication Medication Date Date Medication? Clinician (SIG) Name Name omeprazole 2020-0 Yes 40mg QD Take 40 mg [place] (PriLOSEC) 03-19 by mouth Metho di 40 MG 13:53: daily. st capsule 03 levothyroxi 2020-0 Yes 50ug QD Take 50 Shanel ston ne - mcg by Methodi (SYNTHROID) 13:53: mouth st 50 mcg 03 daily. tablet oxybutynin 2020-0 Yes 5mg Q.[id number] Take 5 mg Leal (DITROPAN) 03-19 [id number] by mouth 3 Methodi 5 MG tablet 13:53: 3D (three) st 03 times a day. metFORMIN 2020-0 Yes 1000mg Q.5D Take 1,000 Leal (GLUCOPHAGE - mg by Methodi ) 1,000 mg 13:53: mouth 2 st tablet 03 (two) times a day with meals. metoprolol 2020-0 2020- No 25mg Take 25 mg [place] succinate 03-19 by mouth. Meth liudmila XL 13:53: 00:00 st (TOPROL-XL) 03 :00 25 mg 24 hr tablet hydroCHLORO 2020-0 Yes 1 capsule H [place] thiazide 03-19 in the Methodi (MICROZIDE) 13:50: morning st 12.5 mg 15 capsule ezetimibe 2020-0 2020- No 1 tablet Shanel ston (ZETIA) 10 03-19 Methodi mg tablet 13:50: 00:00 st 15 :00 pantoprazol 2020-0 2020- No 40mg QD Take 1 Shanel ston e 03-19 tablet (40 Methodi (Protonix) 00:00: 23:59 mg total) s t 40 MG EC 00 :00 by mouth tablet daily for 30 days. benzonatate 2020-0 2020- No 200mg Q.[id number] Take 1 Leal (TESSALON) 03-19 [id number] capsule Methodi 200 MG 00:00: 23:59 3D ([address] capsule 00 :00 total) by mouth 3 (three) times a day as needed for cough for up to 30 days. sucralfate 2020-0 2020- 1g Q.25D Take 10 mL Leal (Carafate) 03-19 (1 g Methodi 100 mg/mL 00:00: 23:59 total) by st suspension 00 :00 mouth 4 (four) times a day for 30 days. metoprolol 2019- 1 tablet [place] tartrate 01-09 with food Metho di (LOPRESSOR) 13:38: 00:00 st 25 mg 38 :00 tablet losartan No 50mg QD Take 50 mg [place] (COZAAR) 50 01-09 by mouth Met hodi MG tablet 13:38: 00:[address] 38 :00 metoprolol 50mg Q.5D Take 1 [place] tartrate 01-09 tablet (50 Meth liudmila (LOPRESSOR) 00:00: 23:59 mg total) st 50 mg 00 :00 by mouth 2 tablet (two) times a day. Incruse Incruse 2019- No Na Crespo [address] Ellipta Ellipta 12-20 [facility] keTOROlac 2019- No 1[drp] Q.5D Administer Leal (ACULAR LS) 12-13 1 drop Metho di 0.4 % 00:00: 00:[address] ophthalmic 00 :00 left eye 2 solution (two) times a day. prednisoLON 2019- No 1[drp] Q.5D Administer Leal E acetate 12-13 1 drop to Meth liudmila (PRED 00:00: 00:[address] FORTE) 1 % 00 :00 eye 2 ophthalmic (two) suspension times a day. levothyroxi 2019- No 1{tbl} QD Take 1 H [place] ne 09-01 tablet by Methodi (SYNTHROID, 00:00: 00:[address] LEVOXYL) 25 00 :00 daily. mcg tablet Vital Signs Vital Name Observation Time Observation Value Comments Source Systolic blood 2020-03-19 13:51:00 140 mm[Hg] Bhanu Guillermoist pressure Diastolic blood 2020-03-19 13:51:00 60 mm[Hg] [place] Hinduism pressure Heart rate 2020-03-19 13:51:00 62 /min Elvis Guillermoist Body temperature 2020-03-19 13:51:00 37 Makeda [place] Respiratory rate 2020-03-19 13:51:00 14 /min [place] Hinduism Body height 2020-03-19 13:51:00 151.1 cm [place] Body weight 2020-03-19 13:51:00 66.134 kg Elvis Guillermoist BMI 2020-03-19 13:51:00 28.96 kg/m2 [place] Oxygen saturation in 2020-03-19 13:51:00 98 /min [place] Arterial blood by Pulse oximetry Procedures Procedure Date / Time Performed Performing Clinician Sourc e XR CHEST 2 VW 2020-03-19 16:04:52 Preston Alfaro De thodist CV STRESS TEST 2020-02-21 12:08:10 Andrew Alfaro NM MYOCARDIAL PERFUSION 2020-02-21 10:37:00 Andrew Alfaro ECG 12-LEAD 2020-01-10 12:03:25 Andrew Alfaro odaki Plan of Care Planned Activity Planned Date Details Comments Source Future Scheduled 2020-10-04 DIABETES: RETINAL EYE [place] [facility] Test 00:00:00 EXAM [code = DIABETES: RETINAL EYE EXAM] Future Scheduled 2020-01-21 INFLUENZA VACCINE [place] [facility] Test 00:00:00 [code = INFLUENZA VACCINE] Future Scheduled 2018 65+ PNEUMOCOCCAL [place] [facility] Test 00:00:00 VACCINE (1 of 1 - PPSV23) [code = 65+ PNEUMOCOCCAL VACCINE (1 of 1 - PPSV23)] Future Scheduled 2003 BREAST CANCER [facility] thodist Test 00:00:00 SCREENING [code = BREAST CANCER SCREENING] Future Scheduled 2003 COLONOSCOPY SCREENING [place] [facility] Test 00:00:00 [code = COLONOSCOPY SCREENING] Future Scheduled 2003 SHINGLES VACCINES (#1) [place] [facility] Test 00:00:00 [code = SHINGLES VACCINES (#1)] Future Scheduled 1969 COVID-19 VACCINE (1 of [place] [facility] Test 00:00:00 2) [code = COVID-19 VACCINE (1 of 2)] Future Scheduled 1963 DIABETIC FOOT EXAM [place] [facility] Test 00:00:00 [code = DIABETIC FOOT EXAM] Future Scheduled 1963 URINE MICROALBUMIN [place] [facility] Test 00:00:00 [code = URINE MICROALBUMIN] Encounters Start End Encounter Admission Attending Care Care Encounter Source Date/Time Date/Time Type Type Clinicians Facility Department ID 2020-07-07 2020-07-07 [id number] 2020-06-28 2020-06-28 [facility] [id number] [facility] 2020-05-28 2020-05-28 [facility] [id number] [facility] 2020-05-24 2020-05-24 [facility] [id number] 2020-04-30 2020-04-30 [facility] [id number] [facility] 2020-04-28 2020-04-28 [facility] [id number] [facility] 2020-04-06 2020-04-06 [facility] [id number] [facility] 2020-04-02 2020-04-02 [facility] [id number] [facility] 2020-03-28 2020-03-28 [facility] [id number] [facility] 2020-03-28 2020-03-28 [facility] [id number] [facility] 2020-03-19 2020-03-19 Outpatient DOMINIC, [facility] [id number] [place] 00:00:00 00:00:00 [place] [address] 2020-03-19 2020-03-19 Outpatient DOMINIC, [facility] [id number] [place] 00:00:00 00:00:00 [place] [address] 2020-03-19 2020-03-19 Outpatient DOMINIC, [facility] [id number] [place] 00:00:00 00:00:00 PRE[place]ON [address] 2020-03-02 2020-03-02 Outpatient [facility] [id number] [facility] 2020-02-21 2020-02-21 Outpatient DOMINIC, [facility] [id number] 950 [place] 00:00:00 00:00:00 ANDREW [address] 2020-02-01 2020-02-01 [facility] [id number] 12:46:00 12:46:00 [facility] Medicine Outpati ent Clinics 2020-01-31 2020-01-31 [facility] [id number] 16:29:00 16:29:00 [facility] Medicine l Medicine Outpati ent Clinics 2020-01-17 2020-01-17 [facility] [id number] 16:17:00 16:17:00 [facility] Medicine Medicine Outpati ent Clinics 2020-01-12 2020-01-12 [facility] [id number] 06:53:00 09:17:00 Gonzalo Painting [id number] [place] [id number] Surgical [id number] [place] 07 2020-01-12 2020-01-12 Anesthesia Lukasz Garcia [facility] [id number] 07:53:00 08:07:00 Jeffy Mariee [id number] [place] 4.2.[address] [facility] [id number] [place] 020 2020-01-11 2020-01-11 Laboratory Only, Adc [facility] [id number] 11:21:06 11:35:49 Only Test [place] [id number] [place] 4.2.7.2.686 Roggen [id number] 353 2020-01-10 2020-01-10 Outpatient ALFARO [facility] [id number] [address] [place] [address] 00:00:00 00:00:00 ANDREW [address] 2019-12-16 2019-12-16 [facility] [id number] 15:59:00 15:59:00 t [facility] [facility] Medicine Outpati ent Clinics 2019-12-15 2019-12-15 [facility] [id number] 15:17:00 15:17:00 t [facility] [employer] [facility] Medicine Outpati ent Clinics 2019-12-06 2019-12-06 [facility] [id number] 10:00:00 10:00:00 t [place] [employer] [facility] - [employer] [facility] l Medicine Outpati ent Clinics 2019-11-25 2019-11-25 [facility] [id number] 15:03:00 15:03:00 t [facility] [employer] [facility] Medicine Outpati ent Clinics 2019-11-15 2019-11-15 [facility] [id number] 14:22:00 14:22:00 t [employer] s - [employer] [facility] Medicine l Medicine Outpati ent Clinics 2019-09-19 2019-09-19 [facility] [id number] 14:40:00 14:40:00 t [employer] s - [employer] [facility] Medicine l Medicine Outpati ent Clinics 2019-09-19 2019-09-19 [facility] [id number] 12:29:00 12:29:00 t [employer] s - [employer] [facility] Medicine Outpati ent Clinics 2019-07-26 2019-07-26 [facility] [id number] 15:20:00 15:20:[address] [facility] [address] Luke s - Road [facility] Medicine l Medicine Outpati ent Clinics 2019-07-14 2019-07-14 [facility] [id number] 09:57:00 09:57:[address] Luke [address] - [address] [facility] Medicine l Medicine Outpati ent Clinics 2019-06-23 2019-06-23 [facility] [id number] 15:06:00 15:06:[address] Luke [address] - Drive [facility] Medicine l Medicine Outpati ent Clinics 2019-06-14 2019-06-14 [facility] [id number] 12:16:00 12:16:[address] Luke [address] - [address] [facility] Medicine Outpati ent Clinics 2019-06-10 2019-06-10 [facility] [id number] 14:20:00 14:20:[address] Luke [address] - Drive [facility] Medicine l Medicine Outpati ent Clinics 2019-05-31 2019-05-31 [facility] [id number] 03:28:00 03:28:[address] Luke [address] - Drive [facility] Medicine l Medicine Outpati ent Clinics 2019-04-21 2019-04-21 [facility] [id number] 10:29:00 10:29:[address] Luke [address] - Drive [facility] Medicine l Medicine Outpati ent Clinics 2019-03-25 2019-03-25 [facility] [id number] 09:00:00 09:00:[address] Luke [address] - Drive [facility] Medicine l Medicine Outpati ent Clinics 2019-01-06 2019-01-06 Outpatient PHILIPP Alfaro [id number] [facility] 15:39:00 15:39:00 Bryant Teixeira 2018-12-30 2018-12-30 [facility] [id number] 16:00:00 16:00:[address] Luke [address] - Drive [facility] Medicine l Medicine Outpati ent Clinics 2018-11-25 2018-11-25 [facility] [id number] 10:21:00 10:21:[address] Luke [address] - Drive [facility] Medicine Outpati ent Clinics 2018-11-11 2018-11-11 [facility] [id number] 15:40:00 15:40:[address] Luke [address] - Drive [facility] Medicine Outpati ent Clinics 2018-09-01 2018-09-01 [facility] [id number] 15:15:00 15:15:[address] Luke [address] - Drive [facility] Medicine Outpati ent Clinics 2018-08-05 2018-08-05 [facility] [id number] 16:36:00 16:36:[address] Luke [address] - Drive [facility] Medicine Outpati ent Clinics 2018-06-04 2018-06-04 [facility] [id number] 08:21:00 08:21:[address] Luke [address] - Drive [facility] Medicine Outpati ent Clinics 2018-05-03 2018-05-03 [facility] [id number] 10:30:00 10:30:[address] Luke [address] - Drive [facility] Medicine Outpati ent Clinics 2017-11-25 2017-11-25 [facility] [id number] 15:30:00 15:30:[address] Luke [address] - Drive [facility] Outpati ent Clinics Results Test Description Test Time Test Comments Results Result [facility] e Comments XR Chest 2 Vw 2020-02-22 [place] [address] Rad[address] 16:07:23 03/19/2020 4:10 PM CDTEXAMINATION: XR CHEST 2 VWCLINICAL HISTORY: R05 Cough, Chronic coughCOMPARISON: NoneIMPRESSION:1. The heart and pulmonary vasculature are within normal limits.2. No infiltrate or effusion is demonstrated.3. There is no acute osseous pathology.CONCLUSION : NO RADIOGRAPHIC EVIDENCE OF ACUTE CARDIOPULMONARY ABNORMALITY.[facility]-2UA [id number] ECG 12 lead 2020-01-10 21:09:29 Test Item Value Reference Range Interpretation Comme nts Ventricular rate (test code = 253) 69 Atrial rate (test code = 255) 69 TN interval (test code = 266) 150 QRSD interval (test code = 260) 84 QT interval (test code = 264) 408 QTC interval (test code = 265) 437 P axis 1 (test code = 267) 78 QRS axis 1 (test code = 268) 22 T wave axis (test code = 270) -2 EKG impression (test code = 273) Normal sinus rhythm-Normal ECG-No previous ECGs available- [place]
--- OUTSIDE RECORDS SUMMARY | 2020-07-17 11:31 | XMS REPORT ---
:1955 Author Organization [facility] Address [address] Reddy, [address] [place] [address] Care Team Providers Name Role Phone Crespo Unavailable [phone] PROBLEMS Type Condition ICD9-CM [id number] Onset Condition SNOMED Code Notes Code Code Dates Status Problem Depression with F41.8 Active 395028547 anxiety Problem Urinary incontinence R32 Active 219897829 Problem Acquired E03.9 Active 624072225 hypothyroidism Problem Family history of Z83.3 Active 660297602 diabetes mellitus Problem Abnormal blood R79.9 Active 513660952 chemistry Problem Hypertriglyceridemia E78.1 Active 085507930 Problem GERD (gastroesophageal K21.9 Active 660788550 reflux disease) Problem Osteoporosis M81.0 Active 60278189 Problem Slow transit K59.01 Active 94083249 constipation Problem Seasonal allergic J30.2 Active 672790909 rhinitis, unspecified trigger Problem Essential hypertension I10 Active 71019586 Problem Mild persistent J45.30 Active 220458162 asthma, unspecified whether complicated Problem Gastroesophageal K21.9 Active 519942032 reflux disease without esophagitis Problem Elevated blood R03.0 Active 642086309 pressure reading in office without diagnosis of hypertension Problem Abdominal pain, left R10.12 Active 590549584 upper quadrant Problem Hyperlipidemia E78.5 Active 48647865 Problem Candidal intertrigo B37.2 Active 631630327 Problem Gastroesophageal K21.9 Active 554779070 reflux disease, esophagitis presence not specified Problem Controlled type 2 E11.9 Active 713753412 diabetes mellitus without complication, without long-term current use of insulin Problem Atrophic vaginitis N95.2 Active 62755357 Problem Allergic rhinitis due J30.81 Active 2120643654 09451 to animal hair and dander ALLERGIES No Known Allergies ENCOUNTERS from 1955 to 2020-05-28 Encounter Location Date Provider Diagnosis [facility]y [facility] [address] [facility] [address], [place] [address] IMMUNIZATIONS No Information SOCIAL HISTORY Tobacco Use: [...] Information RESULTS No Results REASON FOR VISIT Biotin - thyroid MEDICAL (GENERAL) HISTORY Type Description Date Medical [...] No Information FUNCTIONAL STATUS No Information ASSESSMENTS No Information PLAN OF TREATMENT Medication Medication Name Sig Start Date Stop Date Levothyroxine Sodium 25 MCG take 1 tablet in the am once daily orally Orally Once a day for 90 days Glimepiride 2 MG 1 tablet Orally twice a day with May, food for 90 days Next Appt Details Provider Name:Janny Crespo, 2020-06-28 11:2 0:00 AM, [address], [address], [place], [address], Insurance Providers Payer Name Payer Address Payer Insured Patient Coverage Cover age Phone Name Relationship to Start Date End Date Insured MEDICARE Attn Part B [id number] Chris, self 2018 [employer] Claims [address] [place] [address] [facility] [address] [place] [address] [phone] Chris, self 2018 [facility] [address] [place] [address]
--- OUTSIDE RECORDS SUMMARY | 2020-07-17 11:31 | XMS REPORT ---
:1955 Author Organization [facility] Address [address] Red[address], [address] [place] [address] Care Team Providers Name Role Phone Crespo Unavailable [phone] PROBLEMS Type Condition ICD9-CM [id number] Onset Condition SNOMED Code Notes Code Code Dates Status Problem Depression with F41.8 Active 113029988 anxiety Problem Urinary incontinence R32 Active 777939283 Problem Acquired E03.9 Active 048223888 hypothyroidism Problem Family history of Z83.3 Active 288611076 diabetes mellitus Problem Abnormal blood R79.9 Active 892919866 chemistry Problem Hypertriglyceridemia E78.1 Active 283454128 Problem GERD (gastroesophageal K21.9 Active 145976996 reflux disease) Problem Osteoporosis M81.0 Active 39388377 Problem Slow transit K59.01 Active 67563430 constipation Problem Seasonal allergic J30.2 Active 247420850 rhinitis, unspecified trigger Problem Essential hypertension I10 Active 33822355 Problem Mild persistent J45.30 Active 677499347 asthma, unspecified whether complicated Problem Gastroesophageal K21.9 Active 622777421 reflux disease without esophagitis Problem Elevated blood R03.0 Active 754297736 pressure reading in office without diagnosis of hypertension Problem Abdominal pain, left R10.12 Active 127545671 upper quadrant Problem Hyperlipidemia E78.5 Active 23338017 Problem Candidal intertrigo B37.2 Active 420907162 Problem Gastroesophageal K21.9 Active 884969937 reflux disease, esophagitis presence not specified Problem Controlled type 2 E11.9 Active 566943371 diabetes mellitus without complication, without long-term current use of insulin Problem Atrophic vaginitis N95.2 Active 03525284 Problem Allergic rhinitis due J30.81 Active 2513238433 78366 to animal hair and dander ALLERGIES No Known Allergies ENCOUNTERS from 1955 to 2020-07-11 Encounter Location Date Provider Diagnosis [facility]y [facility] [address], [place] [address] IMMUNIZATIONS No Information SOCIAL HISTORY Tobacco Use: [...] Start Date End Date Status Frequency, Duration) Metoprolol Tartrate 25 MG 1 tablet with food Active Orally Twice a day for 30 days Glyxambi 10mg/5mg 1 By Mouth In AM Jun,Sep, Active for 30 days MetFORMIN HCl ER 500 MG 1 tablet with meal May, Active Orally Once a day for 90 days Ezetimibe 10 MG 1 tablet Orally Acti ve Once a day for 30 day(s) Januvia 50 MG as directed Orally Mar, A ctive Once a day for 30 days ProAir RespiClick 108 (90 2 puffs Inhalation Nov, Active Base) MCG/ACT every 6 hours prn sob/ or coughing excessively for 30 days Albuterol Sulfate HFA 108 2 puffs Inhalation Nov, Active (90 Base) MCG/ACT every 6 hours prn sob for 30 days Losartan Potassium 25 MG 1 tablet Orally Active Once a day for 30 day(s) Montelukast Sodium 10 MG 1 tablet Orally Active Once a day for 90 days Glimepiride 4 MG 1 tablet Orally Act jailene twice a day with food for 90 days Triamcinolone Acetonide 0.1 1 application to Aug, Active % affected area Externally Twice a day for 14 days Levothyroxine Sodium 25 MCG take 1 tablet in Active the am once daily orally Orally Once a day for 90 days Hydrochlorothiazide 12.5 MG 1 capsule in the Active morning Orally Once a day for 30 day(s) PROCEDURES No Information RESULTS No Results REASON FOR VISIT lab results MEDICAL (GENERAL) HISTORY Type Description Date Medical [...] Medication Name Sig Start Date Stop Date Glyxambi 10mg/5mg 1 By Mouth In AM for 30 days Jun, 2 0 Sep, 2020 Next Appt Details Provider Name:Janny Huitrong, 2020-09-06 11:4 0:00 AM, [address], [address], [place], [address], Insurance Providers Payer Name Payer Address Payer Insured Patient Coverage Cover age Phone Name Relationship to Start Date End Date Insured MEDICARE Attn Part B [id number] Chris, self 2018 [employer] [address] [place] [address] [facility] [address] [place] [address] [phone] [place], self 2018 [facility] [address] [phone]
[2020-07-17] MEDS ORDERED: BUPIVACAINE 0.25% PF 30 ML VIAL ONE (12:26)
[2020-07-17] MEDS ORDERED: Ringers Lactate 1,000 ML IV ONE (12:27)
[2020-07-17] MEDS ORDERED: EPHEDRINE SULF 50 MG/ML VIAL ONE (13:23)
[2020-07-17] MEDS ORDERED: KETOROLAC 30 MG/ML INJ ONE (15:20)
[2020-07-17] MEDS: Ringers Lactate 1,000 ML IV ONE ×2 (15:43→15:48)
[2020-07-17] MEDS ORDERED: GLYCOPYRROLATE 0.2 MG/ML SYR ONE (15:48)
[2020-07-17] MEDS ORDERED: NEOSTIGMINE 1 MG/ML -5 ML ONE (15:50)
[2020-07-17 16:31] VITALS: TEMP 97.5
[2020-07-17] MEDS ORDERED: ONDANSETRON 4 MG/2 ML VIAL ONE (16:40)
[2020-07-17] MEDS ORDERED: HYDROCODONE/APAP 5/325 MG TAB ONE (17:34)
[2020-07-17 18:02] VITALS: BP 113/64
[2020-07-17 18:30] VITALS: O2SAT 96
--- NOTE | 2020-07-17 19:40 | OP ---
Date of Procedure: 07/17/2020 Surgeon: Nila Tomas MD Preoperative Diagnoses: Postmenopausal bleeding, endometrial polyps and endometrial hyperplasia with out atypia. Postoperative Diagnoses: Postmenopausal bleeding, endometrial polyps and endometrial hyperplasia wit hout atypia and endometriosis. Procedures Performed: Total laparoscopic hysterectomy, bilateral salpingo-oophorectomy, pelvic washi ngs, and cystoscopy. Anesthesia: General endotracheal. Specimens: Uterus, tubes, ovaries and pelvic washings. Complications: No complications. Drains: No drains. Condition: Stable. Indication: The patient is a 65-year-old female who presented with postmenopausal bleeding. A trans vaginal ultrasound was performed and she was found to have thickened endometrium. Diagnostic hystero scopy was performed and endometrial polyps were found and removed and pathology showed endometrial hy perplasia and the polyps without atypia and no background endometrial abnormalities were noted. So, she was offered removal of the polyp completely and observation with ultrasound followup at periodic intervals and asymptomatic followup versus laparoscopic hysterectomy and bilateral salpingo-oophorect tayler. The chances that she would have endometrial adenocarcinoma at this time is about 1% or less and the chance that this could evolve into a malignant condition of the endometrium is also small, but n o more than what it would be for someone without this condition. Does not have any other modifiable risk factors and so hysterectomy and bilateral salpingo-oophorectomy are good alternative for this pa tient. She was counseled appropriately and she chose to proceed with a hysterectomy. So she was con sented appropriately, cleared and brought to the OR. Procedure In Detail: 2 g of Ancef were given. She was taken back to OR, placed in supine fashion on the operating table. Q and A was done with her daughter in the room preoperatively and after satisf actorily answering the questions, she was brought back. General anesthesia was given. She was place d in a dorsal lithotomy position. Pelvic exam was performed and uterus found to be about 6 weeks siz e, slightly enlarged. No adnexal masses were noted. Slight puckering and scarring at the level of t he cervix and genital hiatus was fairly narrow. After abdomen, vulva, vagina, and perineum prepped and draped in a sterile fashion, Hatch was placed to drain the bladder and attached for retrograde filling. Medium VCare was placed into the uterus wi thout any problems. The entry of the VCare cup caused some trauma in the posterior vestibular area w ith a superficial laceration. This was left alone and once this was draped, 1 cm infraumbilical inci marla was made with a scalpel using the open laparoscopy technique. Fascia was incised and tagged wit h 0 Vicryl sutures on both sides and the peritoneum entered sharply. S-retractors were placed. Ranjit on introduced. Site of entry was checked, unremarkable. Upper abdominal surface was unremarkable as well. The patient was placed in Trendelenburg position. The small bowel was packed into the upper abdomen and a survey was conducted in the pelvic cavity. Endometriosis was in the posterior cul-de-s ac pretty close to the level of the VCare cup distal attachment of the uterosacral ligaments and post erior cul-de-sac. There were adhesions from the at the level of the suprapubic area as well as on the vaginal cuff. Then, a 10 mm suprapubic and two 5 ports on the left and right were placed under direct vision. Then, a 10 port was placed suprapubically. All skin incisions and fascial area s were injected with Marcaine before all these were done. Thorough irrigation and suction of the peritoneal cavity were performed. There was small amount of b leeding from the suprapubic port. The bladder was filled and drained in order for me to see the obey ings of the suprapubic location of the upper border of the bladder. Once this was done and the marke d, then the trocar was placed above the level of it. Monocryl suture 3-0 was placed in the epiploicae and pulled out through the left upper quadrant Carte r-Alvin needle. There was bleeding at the side and so there was a 3-0 Monocryl stitch down here. The epiploicae were not retracted on the Monocryl after this was done, as we could do this through t he other port site. The broad ligament opened up between the round ligament and the tube, the mesosalpinx. Then dissecte d this plane open to get a good ovarian pedicle. Then, the tube was dissected off and left hanging f rom the proximally broad ligament taken down broad ligament, opened up anteriorly, placing a bladder flap to the midline and then posteriorly taken down to the level of the uterosacral broad ligament an d taken down to skeletonize the vessels and anterior vaginal wall was dissected and bladder was pushe d down. On the opposite side, similar dissection was performed taking down the tube first and retrie ving the tube and handed out for permanent pathology. The utero-ovarian ligament, round ligament angel en down, broad ligament connected anteriorly and posteriorly taken down to the distal uterosacral on the right and joining the peritoneal incision on both sides posteriorly. Then, vessels were skeleton ized. Then, bladder was dissected off from the anterior vaginal wall with the help of monopolar caut rebeca just in the area above the level of the cup so that the tissue can be dissected and vesicovaginal space could be entered. Once this was entered and dissected down, the bladder was completely safe. Then, the monopolar hook blade was used to create some opening medial to the vessels first on the ri ght, then bipolar basket tip was used to cauterize the vessels and then the vessels were taken down w ith the LigaSure. On the opposite side similar dissection was performed with circumferential colpoto my with a monopolar hook blade including taking down the cardinal ligaments. Specimen was pulled out through the vagina without any problems. No disruption of the uterine specim en was done. Then went on to remove the ovaries, other pedicles carefully well dissected and exposed. So, they we re retrieved through the vagina and marked other sides appropriately. Thorough irrigation and suctio n was performed on the cuff. Then 0 Vicryl sutures were used for closure, so 2 simple angle sutures and 3 [id number] in the center. Excellent reattachment of the uterosacrals and there was a good lift on the anterior vaginal wall. Thorough irrigation and suction were performed through the entir e pelvic cavity. Once all the visualization was done, both ureters were noted from the pelvic brim t o the ureteric tunnel. No evidence of any anatomical distortion. All the trocars were removed under direct vision after gas was desufflated. The left upper quadrant site that was bleeding, it was sti tched with a single suture of 3-0 Monocryl going from medial to lateral side of the vessel retrieving and tying it down at the beginning of phase and then it was completely hemostatic at the end. Did n ot need another suture at the proximal or distal end. No evidence of any expansion or hematoma. Then, went on to inject all the incisions at the level of the fascia and the skin with Marcaine at all 5 sites. Then, all the skin incisions were closed with interrupted 4-0 Vicryl and then fascia at the umbilicus was closed with the tag sutures, tied to each other and suprapubic simple 0 Vicryl suture placed. All the incisions were closed with Steri-Strips and then cystoscopy was performed. A 17-British sheath, 30-degree lens, normal saline was used for c ystoscopy. Excellent jets of urine from both ureteric orifices. No evidence of any mechanical or el ectrical, thermal trauma noted. Then went on to fill the bladder with at least 300 and the 70 degree lens to have good look, not to miss any tumors or any other pathology, and there was not. Very good and adequate inspection of the trigone area above the trigone dome and both lateral kwok were done and the area above the internal meatus was visualized. Urethra was unremarkable. The bladder was dr jenniferned. Vagina was cleaned up and instrument, needle, and sponge counts were correct. There was a la ceration at the vestibule that was about 1 cm and not just epithelial layer, but also the dermal laye r was disrupted, so this could have been from trying to place the cup initially. I do not suspect th at this was caused at the time of removal of the specimen. However, since removed specimen was large r than the cup, however, either way there was very minimal bleeding, but for patient's comfort, the l aceration heals well 3-0 Vicryl [id number] suture was placed to reapproximate the edges. Hatch was left out. Instrument, needle, and sponge counts were correct and patient tolerated the procedure well. She has a 1 week followup appointment with me. She will be discharged home today. Mary has been called into her pharmacy. SARATH/URSULA Voice ID: [id number] Report ID: [id number]
== END 2020-07-17 18:25 | disposition home or self-care (01) ==
LOC: OR 11:05
PROVIDERS: ATTEND Obstetrics & Gynecology
PROC: 0UT24ZZ Resection of Bilateral Ovaries, Percutaneous Endoscopic Approach (ICD-10-PCS; 2020-07-17)
PROC: 0UT74ZZ Resection of Bilateral Fallopian Tubes, Percutaneous Endoscopic Approach (ICD-10-PCS; 2020-07-17)
PROC: 0UT94ZZ Resection of Uterus, Percutaneous Endoscopic Approach (ICD-10-PCS; principal; 2020-07-17 12:15)
DX: N95.0 Postmenopausal bleeding (principal); N85.00 Endometrial hyperplasia, unspecified; R10.2 Pelvic and perineal pain; R39.15 Urgency of urination; E11.65 Type 2 diabetes mellitus with hyperglycemia; I10 Essential (primary) hypertension; Z79.890 Hormone replacement therapy; Z20.822 Contact with and (suspected) exposure to COVID-19
CPT/HCPCS: 58571; 85025; 36415; 86900; 88108; 86850; 86901; 82947 ×2; 88305; 88307; 81003; U0002; J2704; J2250; J3010; J1100; J2710; J0690; J7120 ×2; J7030; J2405 ×2